=== PATIENT | male | born 1995 ===

== ENCOUNTER 2018-02-02 15:05 | Emergency (ER) | payer OTHER ==
[2018-02-02 15:11] VITALS: BMI 23.7
[2018-02-02 15:14] VITALS: O2SAT 98
--- NOTE | 2018-02-02 15:40 | ED PDOC ---
Arrival/HPI - General Chief Complaint: Upper Extremity Problem/Injury Time Seen by Provider: 02/02/18 15:10 Historian: Patient - History of Present Illness Narrative History of Present Illness (Text): 23 yr old male w/ vaccines including tetanus fully UTD p/w R wrist injury. 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 He denies any bleeding or laceration, and notes good sensation and ability to move extremity without issues after injury. He notes R wrist and R forearm pain. He denies hitting his head or any LOC or falling. No blood thinner usage. No other complaints. Time/Duration: 1 hour Symptom Onset: Sudden Activities at Onset: Light Context: Work Past Medical History - Provider Review Nursing Documentation Reviewed: Yes - Infectious Disease Hx of Infectious Diseases: None Family/Social History - Physician Review Nursing Documentation Reviewed: Yes Family/Social History: Unknown Family HX Allergies/Home Meds Allergies/Adverse Reactions: Allergies No Known Allergies Allergy (Verified 02/02/18 15:14) Home Medications: Home Meds Medication Instructions Recorded Confirmed No Known Home Med 02/02/18 02/02/18 Review of Systems - Physician Review All systems were reviewed & negative as marked: Yes - Review of Systems Constitutional: absent: Fatigue, Weight Change Eyes: absent: Vision Changes, Photophobia ENT: absent: Hearing Changes, Tinnitus, Rhinorrhea Respiratory: absent: SOB, Cough Cardiovascular: absent: Chest Pain, Palpitations Gastrointestinal: absent: Abdominal Pain Genitourinary Male: absent: Dysuria, Frequency Musculoskeletal: Other (r wrist pain). absent: Arthralgias, Back Pain Skin: absent: Rash, Skin Lesions, Laceration, Abscess, Other Neurological: absent: Headache, Dizziness Endocrine: absent: Diaphoresis, Polyuria Hemo/Lymphatic: absent: Adenopathy Psychiatric: absent: Anxiety Physical Exam Vital Signs Reviewed: Yes Vital Signs Temp Pulse Resp BP Pulse Ox 02/02/18 15:12 97.7 F 103 H 20 152/92 H 98 Temperature: Afebrile Blood Pressure: Hypertensive Pulse: Tachycardic Respiratory Rate: Normal Appearance: Positive for: Well-Appearing, Non-Toxic, Comfortable Pain Distress: None Mental Status: Positive for: Alert and Oriented X 3 - Systems Exam Head: Present: Atraumatic, Normocephalic. No: Tenderness Pupils: Present: PERRL. No: Sluggish Extroacular Muscles: Present: EOMI. No: Gaze Palsy Conjunctiva: Present: Normal. No: Injected Ears: Present: Normal Mouth: Present: Moist Mucous Membranes Nose (External): Present: Atraumatic Neck: Present: Normal Range of Motion. No: Meningeal Signs, MIDLINE TENDERNESS Respiratory/Chest: Present: Clear to Auscultation, Good Air Exchange. No: Respiratory Distress, Accessory Muscle Use Cardiovascular: Present: Normal S1, S2, Tachycardic. No: Irregular Rhythm Abdomen: No: Tenderness, Distention, Normal Bowel Sounds, Rebound, Guarding Upper Extremity: Present: Normal ROM, NORMAL PULSES, Tenderness (r wrist), Neurovascularly Intact, Capillary Refill < 2s. No: Cyanosis, Edema, Swelling, E rythema Lower Extremity: Present: Normal Inspection, NORMAL PULSES, Neurovascularly Intact, Capillary Refill < 2 s. No: Edema, CALF TENDERNESS, Temperature Abnormalties Neurological: Present: GCS=15, CN II-XII Intact, Speech Normal Skin: Present: Warm, Dry, Rashes Psychiatric: Present: Alert, Oriented x 3, Normal Insight Medical Decision Making ED Course and Treatment: Impression: 23 yr old male w/ vaccines UTD p/w R wrist / hand / finger pain after factory accident. No head trauma. N/V intact distally to R wrist. No laceration or bleeding noted. No snuffbox tenderness. No UCL tenderness. N/V intact. Plan: -- Ibuprofen -- Right forearm, hand, and wrist X-ray Progress notes: Pending XR. 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 Pt notes understanding. - RAD Interpretation Narrative RAD Interpretations (Text): 02/02/18 16:31 Right forearm, wrist, and hand X-ray images appear unremarkable. Interpreted by me. Radiology Orders: 02/02/18 15:21 HAND RIGHT 3 VIEWS [RAD] Stat 02/02/18 15:28 WRIST, RIGHT 3 VIEWS [RAD] Stat 02/02/18 15:34 FOREARM RIGHT [RAD] Stat [employer] Driver: ED Physician - Medication Orders Current Medication Orders: Discontinued Medications Ibuprofen (Motrin Tab) 400 mg PO STAT STA Stop: 02/02/18 15:30 - Scribe Statement The provider has reviewed the documentation as recorded by the Romeroibpetty Blakely Provider Scribe Attestation: All medical record entries made by the Scribe were at my direction and personally dictated by me. I have reviewed the chart and agree that the record accurately reflects my personal performance of the history, physical exam, medical decision making, and the department course for this patient. I have also personally directed, reviewed, and agree with the discharge instructions and disposition. Disposition/Present on Arrival - Present on Arrival Any Indicators Present on Arrival: No History of DVT/PE: No History of Uncontrolled Diabetes: No Urinary Catheter: No History of Decub. Ulcer: No History Surgical Site Infection Following: None - Disposition Have Diagnosis and Disposition been Completed?: Yes Diagnosis: Wrist pain, Contusion Disposition: HOME/ ROUTINE Disposition Time: 17:05 Condition: GOOD Discharge Instructions (ExitCare): Taking Care of Bruises, Wrist Sprain (DC) Additional Instructions: JERRY JEWELL, thank you for letting us take care of you today. Your provider was Geovani Mccormack and you were treated for WRIST/HAND/FINGER INJURY. The emergency medical care you received today was directed at your acute symptoms. If you were prescribed any medication, please fill it and take as directed. It may take several days for your symptoms to resolve. Return to the Emergency Department if your symptoms worsen, do not improve, or if you have any other problems. Please contact your doctor or call one of the physicians/clinics you have been referred to that are listed on the Patient Visit Information form that is included in your discharge packet. Bring any paperwork you were given at discharge with you along with any medications you are taking to your follow up visit. Our treatment cannot replace ongoing medical care by a primary care provider outside of the emergency department. Thank you for allowing the [facility] [employer] team to be part of your care today. If you had an X-Ray or CT scan: A Radiologist will review the ED reading if any change in treatment is needed we will contact you. If you had a blood, urine, or wound culture: It will take several days for the results, if any change in treatment is needed we will contact you. If you had an STI test: It will take 48 hours for the results. Please call after 1 week if you have not heard back. Referrals: Sona Mcguire MD [Medical Doctor] - Follow up with primary [facility] [Outside] - Follow up with primary Raf Leyva DO [Staff Provider] - Follow up with primary Forms: [facility] (Uzbek), WORK NOTE
--- NOTE | 2018-02-02 16:34 | RAD ---
Date of service: 02/02/2018 PROCEDURE: Right Wrist Radiographs. HISTORY: pain s/p hand caught in machine COMPARISON: None. FINDINGS: BONES: Normal. No fracture. JOINTS: Normal. No dislocation. SOFT TISSUES: Normal. OTHER FINDINGS: None. IMPRESSION: Unremarkable right wrist radiographs.
--- NOTE | 2018-02-02 16:34 | RAD ---
PROCEDURE: Right Hand Radiographs. HISTORY: hand caught in machine COMPARISON: None. FINDINGS: BONES: Normal. No fracture. JOINTS: Normal. No osteoarthritic changes. SOFT TISSUES: Normal. OTHER FINDINGS: None. IMPRESSION: Unremarkable right hand radiographs.
--- NOTE | 2018-02-02 16:36 | RAD ---
PROCEDURE: Radiographs of the Right Forearm HISTORY: hand caught COMPARISON: None available. TECHNIQUE: Frontal and lateral views obtained. FINDINGS: BONES: No fracture or destructive lesion. JOINT SPACES: Unremarkable. OTHER FINDINGS: None. IMPRESSION: Unremarkable radiographs of the right forearm.
[2018-02-02 17:19] VITALS: BP 123/79; PULSE 92; RESP 18; TEMP 98.2
== END 2018-02-02 17:19 | disposition home or self-care (01) ==
LOC: ED 15:05
DX: M25.531 Pain in right wrist (principal); S60.211A Contusion of right wrist, initial encounter; W23.0XXA Caught, crushed, jammed, or pinched between moving objects, initial encounter; Y92.69 Other specified industrial and construction area as the place of occurrence of the external cause; Y99.0 Civilian activity done for income or pay

== ENCOUNTER 2018-06-01 16:55 | Emergency (ER) | payer SELFPAY ==
[2018-06-01 16:58] VITALS: BMI 27.1
[2018-06-01 17:13] VITALS: RESP 18; TEMP 97.8; O2SAT 99
--- NOTE | 2018-06-01 17:24 | RAD ---
Date of service: 06/01/2018 HISTORY: sob COMPARISON: No prior. FINDINGS: LUNGS: No active pulmonary disease. PLEURA: No significant pleural effusion identified, no pneumothorax apparent. CARDIOVASCULAR: No aortic atherosclerotic calcification present. Normal cardiac size. No pulmonary vascular congestion. OSSEOUS STRUCTURES: No significant abnormalities. VISUALIZED UPPER ABDOMEN: Normal. OTHER FINDINGS: None. IMPRESSION: No active disease.
--- NOTE | 2018-06-01 17:51 | ED PDOC ---
Arrival/HPI - General Chief Complaint: Cough, Cold, Congestion Time Seen by Provider: 06/01/18 16:59 Historian: Patient - History of Present Illness Narrative History of Present Illness (Text): 06/01/18 17:44 23 year old male, with no significant past medical history, presents to the ED for evaluation of an episode of chest pain this morning. Patient describes the chest pain as heaviness, intermittent in onset, similar to symptoms experienced 1 year ago. Patient additionally informs cough since past few days but denies any sick contact. Patient denies any other associated somatic complaints. Patient denies any fevers, chills, headache, dizziness, shortness of breath, dyspnea on exertion, cough, abdominal pain, nausea, vomiting, diarrhea, back pain, neck pain, or any other complaints. Time/Duration: 4-6 hours Symptom Onset: Gradual Symptom Course: Improving Activities at Onset: Light Context: Home Past Medical History - Provider Review Nursing Documentation Reviewed: Yes - Infectious Disease Hx of Infectious Diseases: None - Psychiatric Hx Substance Use: No - Anesthesia Hx Anesthesia: No Family/Social History - Physician Review Nursing Documentation Reviewed: Yes Family/Social History: Unknown Family HX Smoking Status: Never Smoked Hx Alcohol Use: No Hx Substance Use: No Allergies/Home Meds Allergies/Adverse Reactions: Allergies No Known Allergies Allergy (Verified 02/02/18 15:14) Review of Systems - Physician Review All systems were reviewed & negative as marked: Yes - Review of Systems Constitutional: absent: Fevers Respiratory: Cough. absent: SOB Cardiovascular: Chest Pain Gastrointestinal: absent: Abdominal Pain, Diarrhea, Nausea, Vomiting Genitourinary Male: absent: Dysuria, Urinary Output Changes Musculoskeletal: absent: Back Pain, Neck Pain Skin: absent: Rash Neurological: absent: Headache, Dizziness Psychiatric: absent: Anxiety Physical Exam Vital Signs Reviewed: Yes Vital Signs Temp Pulse Resp BP Pulse Ox 06/01/18 17:10 97.8 F 86 18 125/63 99 Temperature: Afebrile Blood Pressure: Normal Pulse: Regular Respiratory Rate: Normal Appearance: Positive for: Well-Appearing, Non-Toxic, Comfortable Pain Distress: None Mental Status: Positive for: Alert and Oriented X 3 - Systems Exam Head: Present: Atraumatic, Normocephalic Pupils: Present: PERRL Extroacular Muscles: Present: EOMI Conjunctiva: Present: Normal Mouth: Present: Moist Mucous Membranes Neck: Present: Normal Range of Motion Respiratory/Chest: Present: Clear to Auscultation, Good Air Exchange, Tender to Palpation (Mild tenderness to palpation to interior chest wall). No: Respiratory Distress, Accessory Muscle Use Cardiovascular: Present: Regular Rate and Rhythm, Normal S1, S2. No: Murmurs Abdomen: No: Tenderness, Distention, Peritoneal Signs Back: Present: Normal Inspection Upper Extremity: Present: Normal Inspection. No: Cyanosis, Edema Lower Extremity: Present: Normal Inspection. No: Edema Neurological: Present: GCS=15, Speech Normal Skin: Present: Warm, Dry, Normal Color. No: Rashes Psychiatric: Present: Alert, Oriented x 3, Normal Insight, Normal Concentration Medical Decision Making ED Course and Treatment: 06/01/18 17:53 Impression: 23 year old male presents to the ED for evaluation of midsternal chest pain. Differential Diagnosis included but are not limited to: -- Costrochondritis Plan: -- EKG -- CXR -- Toradol -- Rapid Flu -- Reassess and disposition Prior Visits: Notes and results from previous visits were reviewed. Progress Notes: - RAD Interpretation Narrative RAD Interpretations (Text): 06/01/18 18:27 CXR reviewed by radiologist, shows: FINDINGS: LUNGS: No active pulmonary disease. PLEURA: No significant pleural effusion identified, no pneumothorax apparent. CARDIOVASCULAR: No aortic atherosclerotic calcification present. Normal cardiac size. No pulmonary vascular congestion. OSSEOUS STRUCTURES: No significant abnormalities. VISUALIZED UPPER ABDOMEN: Normal. OTHER FINDINGS: None. IMPRESSION: No active disease. Radiology Orders: 06/01/18 17:07 CHEST PORTABLE [RAD] Stat Housecleaner: Radiologist - EKG Interpretation EKG Interpretation (Text): 06/01/18 17:54 EKG reviewed, shows NSR @ 73bpm, No ST elevations, Early repolarizations noted on precordial leads. Interpreted by ED Physician: Yes Type: 12 lead EKG - Medication Orders Current Medication Orders: Discontinued Medications Ketorolac Tromethamine (Toradol) 60 mg IM STAT STA Stop: 06/01/18 17:29 - Scribe Statement The provider has reviewed the documentation as recorded by the Scribe Marlen Waters. All medical record entries made by the Scribe were at my direction and personally dictated by me. I have reviewed the chart and agree that the record accurately reflects my personal performance of the history, physical exam, medical decision making, and the department course for this patient. I have also personally directed, reviewed, and agree with the discharge instructions and disposition. Disposition/Present on Arrival - Present on Arrival Any Indicators Present on Arrival: No History of DVT/PE: No History of Uncontrolled Diabetes: No Urinary Catheter: No History of Decub. Ulcer: No History Surgical Site Infection Following: None - Disposition Have Diagnosis and Disposition been Completed?: Yes Diagnosis: Costochondritis Disposition: HOME/ ROUTINE Disposition Time: 18:18 Patient Plan: Discharge Patient Problems: Current Active Problems Problem Status Onset Costochondritis Acute Condition: STABLE Discharge Instructions (ExitCare): Costochondritis (DC) Print Language: GAMBIAN Additional Instructions: All medical record entries made by the Scribe were at my direction and personally dictated by me. I have reviewed the chart and agree that the record accurately reflects my personal performance of the history, physical exam, medical decision making, and the department course for this patient. I have also personally directed, reviewed, and agree with the discharge instructions and disposition. Please schedule a visit with a market risk specialist Prescriptions: Naproxen 500 mg PO Q6H #12 tab Referrals: Ernestina Jackson MD [Staff Provider] - Follow up with primary Tess Joseph DO [Doctor Osteopathy] - Follow up with primary Forms: [employer] (Uzbek)
[2018-06-01 18:41] VITALS: BP 121/65; PULSE 78
--- NOTE | 2018-06-02 09:20 | CARD ---
APPROVED REPORT Date of service: 06/01/2018 EKG Measurement Heart [id number] <Conclusion> Normal sinus rhythm Normal ECG
== END 2018-06-01 18:51 | disposition home or self-care (01) ==
LOC: ED 16:55
DX: M94.0 Chondrocostal junction syndrome [Tietze] (principal)
CPT/HCPCS: 71045; 87804; 93005; 96372; 99282; J1885

== ENCOUNTER 2018-07-12 07:56 | Emergency (ER) | payer OTHER ==
[2018-07-12 08:29] VITALS: BMI 25.8
[2018-07-12 08:32] VITALS: RESP 18; TEMP 98.4
--- NOTE | 2018-07-12 08:39 | ED PDOC ---
Arrival/HPI - General Historian: Patient - History of Present Illness Narrative History of Present Illness (Text): 07/12/18 08:36 Patient is a 23yo M with no PMH presenting to ED with complaints of dizziness and nausea since this morning. He also complains of headache and chills. He reports that symptoms began when he woke up this morning. He reports associated chills and body aches. He reports vomiting once today, which was yellow. He denies sore throat, cough, fever, abdominal pain, diarrhea, dysuria. He denies recent travel or sick contacts. He has not taken any medicine at home to help relieve his symptoms. <Agustin Almonte - Last Filed: 07/12/18 10:42> <Wyatt Martínez - Last Filed: 07/12/18 18:45> - General Chief Complaint: Dizziness/Lightheaded Time Seen by Provider: 07/12/18 08:23 Past Medical History - Infectious Disease Hx of Infectious Diseases: None - Psychiatric Hx Substance Use: No - Anesthesia Hx Anesthesia: No <Agustin Almonte - Last Filed: 07/12/18 10:42> Family/Social History Family/Social History: No Known Family HX Smoking Status: Never Smoked Hx Alcohol Use: No Hx Substance Use: No <Agustin Almonte - Last Filed: 07/12/18 10:42> Allergies/Home Meds <Agustin Almonte - Last Filed: 07/12/18 10:42> <Wyatt Martínez - Last Filed: 07/12/18 18:45> Allergies/Adverse Reactions: Allergies No Known Allergies Allergy (Verified 07/12/18 08:32) Home Medications: Home Meds Medication Instructions Recorded Confirmed No Known Home Med 07/12/18 07/12/18 Review of Systems - Review of Systems Constitutional: absent: Fevers ENT: absent: Sore Throat, Rhinorrhea Respiratory: absent: SOB, Cough Cardiovascular: absent: Chest Pain Gastrointestinal: Nausea, Vomiting. absent: Abdominal Pain, Diarrhea Genitourinary Male: absent: Dysuria Musculoskeletal: Arthralgias Neurological: Headache <Agustin Almonte - Last Filed: 07/12/18 10:42> Physical Exam Vital Signs Temp Pulse Resp BP Pulse Ox 07/12/18 08:29 98.4 F 74 18 111/65 99 - Systems Exam Head: Present: Atraumatic, Normocephalic Pupils: Present: PERRL Extroacular Muscles: Present: EOMI Conjunctiva: Present: Normal Mouth: Present: Moist Mucous Membranes Pharnyx: Present: Normal. No: ERYTHEMA, EXUDATE, Uvular Deviation Neck: Present: Normal Range of Motion. No: Lymphadenopathy Respiratory/Chest: Present: Clear to Auscultation. No: Respiratory Distress, Accessory Muscle Use, Wheezes, Rales, Rhonchi Cardiovascular: Present: Regular Rate and Rhythm, Normal S1, S2. No: Murmurs Abdomen: Present: Normal Bowel Sounds. No: Tenderness, Distention, Peritoneal Signs Upper Extremity: Present: Normal Inspection. No: Edema Lower Extremity: Present: Normal Inspection. No: Edema Neurological: Present: GCS=15, Speech Normal Skin: Present: Normal Color Psychiatric: Present: Alert, Oriented x 3 <Agustin Almonte - Last Filed: 07/12/18 10:42> Vital Signs Temp Pulse Resp BP Pulse Ox 07/12/18 08:29 98.4 F 74 18 111/65 99 <Wyatt Martínez - Last Filed: 07/12/18 18:45> Medical Decision Making ED Course and Treatment: ro metabolci infectious etiology 07/12/18 10:23 Patient was seen and evaluated with resident. Patient is a 23 year old male who presents to the emergency department complaining of dizziness and nausea since this morning. On exam, no abdominal tenderness. 07/12/18 18:45 in er pt in nad. labs neg. abd soft ttp non specific dizziness. in er vitals stalbe. stable for dc return precautions advised. - Lab Interpretations Lab Results: PT 11.9 SECONDS (9.4-12.5) 07/12/18 09:35 INR 1.05 07/12/18 09:35 APTT 36.1 Seconds (26.9-38.3) 07/12/18 09:35 Total Bilirubin 0.5 mg/dL (0.2-1.3) 07/12/18 09:35 AST 42 U/L (17-59) 07/12/18 09:35 ALT 86 U/L (7-56) H 07/12/18 09:35 Alkaline Phosphatase 60 U/L (38-126) 07/12/18 09:35 Total Protein 8.1 g/dL (5.8-8.3) 07/12/18 09:35 Albumin 4.6 g/dL (3.0-4.8) 07/12/18 09:35 Globulin 3.5 gm/dL 07/12/18 09:35 Albumin/Globulin Ratio 1.3 (1.1-1.8) 07/12/18 09:35 Urine Color Yellow (YELLOW) 07/12/18 09:50 Urine Appearance Clear (CLEAR) 07/12/18 09:50 Urine pH 6.0 (4.7-8.0) 07/12/18 09:50 Ur Specific [place] >= 1.030 (1.005-1.035) 07/12/18 09:50 Urine Protein Trace mg/dL (<30 mg/dL) H 07/12/18 09:50 Urine Glucose (UA) Negative mg/dL (NEGATIVE) 07/12/18 09:50 Urine Ketones Negative mg/dL (NEGATIVE) 07/12/18 09:50 Urine Blood Negative (NEGATIVE) 07/12/18 09:50 Urine Nitrate Negative (NEGATIVE) 07/12/18 09:50 Urine Bilirubin Negative (NEGATIVE) 07/12/18 09:50 Urine Urobilinogen 0.2 E.U./dL (<1 E.U./dL) 07/12/18 09:50 Ur Leukocyte Esterase Negative Danial/uL (NEGATIVE) 07/12/18 09:50 - Medication Orders Current Medication Orders: Discontinued Medications Acetaminophen (Tylenol 325mg Tab) 975 mg PO STAT STA Stop: 07/12/18 08:39 Last Admin: 07/12/18 09:40 Dose: 975 mg MAR Pain/Vitals Document 07/12/18 09:40 CD (Rec: 07/12/18 09:41 CD [facility] [id number]) Pain Reassessment Is This A Pain ReAssessment? No Sleep Is patient sleeping during reassessment? No Presence of Pain Presence of Pain Yes Ondansetron HCl (Zofran Inj) 4 mg IVP STAT STA Stop: 07/12/18 08:39 Last Admin: 07/12/18 09:40 Dose: 4 mg IVP Administration Document 07/12/18 09:40 CD (Rec: 07/12/18 09:40 CD [facility] [id number]) Charges for Administration # of IVP Administrations 1 <Wyatt Martínez - Last Filed: 07/12/18 18:45> Disposition/Present on Arrival - Present on Arrival Any Indicators Present on Arrival: No History of DVT/PE: No History of Uncontrolled Diabetes: No Urinary Catheter: No History of Decub. Ulcer: No History Surgical Site Infection Following: None - Disposition Have Diagnosis and Disposition been Completed?: Yes Disposition Time: 10:43 <Agustin Almonte - Last Filed: 07/12/18 10:42> <Wyatt Martínez - Last Filed: 07/12/18 18:45> - Disposition Diagnosis: Viral infection, Viral gastritis Disposition: HOME/ ROUTINE Condition: IMPROVED Discharge Instructions (ExitCare): Viral Gastroenteritis, Adult (DC) Additional Instructions: drink plenty of fluids and take tylenol or ibuprofen as needed for pain. if symptoms worsen, return to emergency department. Referrals: FAMILY PROVIDER,NO [Primary Care Provider] - Follow up with primary [facility] [place] [Outside] - Follow up with primary Forms: [employer] (Spanish)
[2018-07-12 09:50] LABS: BASO # 0.02 K/mm3 (0.0-2.0); BASO % 0.3 % (0.0-3.0); EOS # 0.1 (0.0-0.7); EOS % 0.8 % (1.5-5.0); LYMPH # 1.8 (1.2-3.4); LYMPH % 27.4 % (22.0-35.0); MEAN CELL VOLUME 84.1 fl (80.0-105.0); MEAN CORPUSCULAR HGB CONC 33.3 g/dl (31.0-37.0); MEAN PLATELET VOLUME 9.9 fl (7.0-11.0); MONO # 0.3 (0.1-0.6); MONO % 4.5 % (1.0-6.0); RBC 5.36 10^6/uL (3.5-6.1); RED CELL DISTRIBUTION WIDTH 13.4 % (11.5-14.5); WHITE BLOOD COUNT 6.5 10^3/uL (4.5-11.0)
[2018-07-12 09:58] LABS: INR 1.05; PARTIAL THROMBOPLASTIN TIME 36.1 Seconds (26.9-38.3); PROTHROMBIN TIME 11.9 SECONDS (9.4-12.5)
[2018-07-12 10:00] LABS: ALB/GLOB RATIO 1.3 (1.1-1.8); ALBUMIN 4.6 g/dL (3.0-4.8); ALT/SGPT 86 U/L (7-56); AST/SGOT 42 U/L (17-59); BLOOD UREA NITROGEN 10 mg/dL (7-21); CALCIUM 9.5 mg/dL (8.4-10.5); GFR NON-AFRICAN AMERICAN > 60
[2018-07-12 10:12] LABS: BARBITURATES, UR NEGATIVE (NEGATIVE); BENZODIAZEPINES, UR NEGATIVE (NEGATIVE); OPIATES, UR NEGATIVE (NEGATIVE); PHENCYCLIDINE, UR NEGATIVE (NEGATIVE)
[2018-07-12 10:18] LABS: URINE BILIRUBIN NEGATIVE (NEGATIVE); URINE BLOOD NEGATIVE (NEGATIVE); URINE GLUCOSE (UA) NEGATIVE (NEGATIVE); URINE LEUKOCYTE ESTERASE NEGATIVE Leu/uL (NEGATIVE); URINE PROTEIN TRACE mg/dL (<30 mg/dL); URINE UROBILINOGEN 0.2 E.U./dL (<1 E.U./dL)
[2018-07-12 10:19] LABS: URINE APPEARANCE CLEAR (CLEAR); URINE COLOR YELLOW (YELLOW)
[2018-07-12 10:30] VITALS: BP 123/66; PULSE 72; O2SAT 98
[2018-07-12 10:37] LABS: URINE AMORPHOUS SEDIMENT FEW /hpf; URINE BACTERIA MANY /hpf; URINE RBC 0 - 2 /hpf (0-2); URINE WBC 0 - 2 /hpf (0-6)
== END 2018-07-12 10:29 | disposition home or self-care (01) ==
LOC: ED 07:56
DX: A08.4 Viral intestinal infection, unspecified (principal); B34.9 Viral infection, unspecified
CPT/HCPCS: 80053; 80324; 80345; 80346; 80349; 80353; 80358; 80361; 81001; 83992; 85025; 85610; 85730; 96374; 99285; J2405